=== PATIENT | female | born 1995 | race Caucasian/White ===

== ENCOUNTER 2021-09-23 10:28 | Outpatient (CLI) | payer BC, SELFPAY ==
[2021-09-25 12:47] LABS: Rapid Plasma Reagin (RPR) Non Reactive (Non Reactive)
== END 2021-09-23 10:29 | disposition home or self-care (01) ==
PROVIDERS: Visit Provider Advanced Practice Midwife
DX: Z34.93 Encounter for supervision of normal pregnancy, unspecified, third trimester (principal); Z3A.28 28 weeks gestation of pregnancy
CPT/HCPCS: 86592

== ENCOUNTER 2021-11-17 11:07 | Outpatient (CLI) | payer BC, SELFPAY ==
[2021-11-18 12:30] LABS: Strep B DNA Probe NEGATIVE (Negative)
== END 2021-11-17 11:08 | disposition home or self-care (01) ==
LOC: NFLDREF 11:07
PROVIDERS: Visit Provider Advanced Practice Midwife
DX: Z34.93 Encounter for supervision of normal pregnancy, unspecified, third trimester (principal); Z3A.36 36 weeks gestation of pregnancy
CPT/HCPCS: 87081; 87653

== ENCOUNTER 2021-11-24 09:40 | Outpatient (CLI) | payer BC, SELFPAY ==
--- NOTE | 2021-11-24 11:00 | CRLHL7_ITS ---
For Patients: As a result of the Century Cures Act, medical imaging exams and procedure reports are released immediately into your electronic medical record. You may view this report before your referring provider. If you have questions, please contact your health care provider. INDICATION: Third trimester scan, evaluate growth. BILATERAL PELVIECTASIS AT 20 WKS AND FLUID CHECK COMPARISON: 07/28/2021 TECHNIQUE: Real time christianson scale imaging of the fetus was performed. FINDINGS: Sonographic imaging demonstrates a single living intrauterine gestation. Fetus demonstrates a regular cardiac rate of 143 beats per minute. Fetus has a breech position. The placenta lies left fundal posterior, grade 3. Amniotic fluid volume appears normal and there is a single deepest vertical pocket: 5.1 cm. The estimated weight is 343gm which lies at the 86th %. On the prior OB ultrasound exam dated 07/28/2021 the estimated weight was at the 23rd%. BPD 66th percentile. HC 97th percentile. AC greater than 97th percentile. FL 5th percentile. The HC/AC ratio measures range (-). Bilateral pelviectasis again noted measuring 8 millimeters on the right and 7 millimeters on the left. IMPRESSION: Bilateral pelviectasis measuring 8 millimeters on the right and 7 millimeters on the left. Less than 7 considered normal in the 3rd trimester. Normal amniotic fluid. follow-up is recommended. Sonographic gestational age 38 weeks 1 day and sonographic due date 12/07/2021. Sonographic age 7 days ahead of the clinical age. Estimated weight 86th percentile. Abdominal circumference greater than 97th percentile. Dictated by Jose Welch MD @ 11/24/2021 11:57:59 AM (Electronically Signed)
== END 2021-11-24 09:41 | disposition home or self-care (01) ==
LOC: US 09:41
PROVIDERS: Visit Provider Advanced Practice Midwife
DX: Z34.93 Encounter for supervision of normal pregnancy, unspecified, third trimester (principal); Z3A.38 38 weeks gestation of pregnancy
CPT/HCPCS: 76816

== ENCOUNTER 2021-11-28 06:59 | Outpatient (CLI) | payer BC, SELFPAY ==
[2021-11-28 07:23] VITALS: BP 115/67; PULSE 98
[2021-11-28 07:24] VITALS: PULSE 99; O2SAT 98
[2021-11-28 07:25] VITALS: RESP 16; TEMP 36.6
[2021-11-28 08:39] LABS: SARS Antigen* negative (Negative)
[2021-11-28] MEDS: TERBUTALINE 1 MG/ML INJ 0.25 MG SUBCUT (08:49)
[2021-11-28 08:59] VITALS: PULSE 89; O2SAT 99
--- NOTE | 2021-11-28 09:01 | W.PM.GYNPROC ---
Procedure Note Time Seen by Provider: 09:01 Date Seen: 11/28/21 Procedure Details: PREOPERATIVE DIAGNOSIS: 1. Intrauterine at 37 5/7 weeks gestation. 2. Breech presentation. POSTOPERATIVE DIAGNOSIS: 1. Intrauterine at 37 5/7 weeks gestation. 2. Vertex presentation. PROCEDURE: 1. Nonstress test. 2. Limited OB ultrasound. 3. External cephalic version. SURGEON: Medardo. SERVICE CENTER TECHNICIAN: Kang. ANESTHESIA: None. COMPLICATIONS: None. FINDINGS: Nonstress test: heart rate baseline 120 beats per minute, good variability, 15 x 15 accelerations present, no decelerations, category 1. Limited OB ultrasound: Single, living, intrauterine gestation in a breech presentation with the back along the maternal left, grossly normal amniotic fluid volume. PROCEDURE NOTE: A nonstress test was performed, which was reactive and reassuring. A limited OB ultrasound was performed at the bedside to determine position. Findings noted above. Informed consent was obtained for external cephalic version. Terbutaline 0.25 mg was administered to the patient subcutaneously. External cephalic version was attempted. I applied upward pressure to the breech, Dr. Kapadia applied pressure to the vertex, and we attempted to gently coax the fetus in a forward roll in a counter-clockwise direction. This attempt was successful. heart tones were noted to be in the 110s immediately after the procedure, with good return to baseline of 120 beats per minute. The patient tolerated the procedure well. monitoring for 1 hour after the procedure was continued to be reassuring.
--- NOTE | 2021-11-28 11:50 | PC.OBNST ---
NST Note NST Note Start: 11/28/21 07:14 Freq: ONCE Status: Active Protocol: Document 11/28/21 10:00 WK (Rec: 11/28/21 11:50 WK [id number]) NST Note 4 Para (# of births) 1 EDC 12/14/21 Gestational Age In Weeks & Days 37 Weeks & 5 Days Patient Presented with Complaint(s) of Other Reactive Yes Appropriate for Gestational Age Yes RN Pravin RNC Date 11/28/21 Reactive Yes Appropriate for Gestational Age Yes RN Crissyus RN Date 11/28/21 OB NST charge Yes Complete NST Note via Write Note Yes The provider's electronic signature indicates the NST is reactive/appropriate for gestational age. *Note to provider: If an addendum is required, open the patient's chart and click on the note under the Nurse/Allied Health tab.
== END 2021-11-28 10:20 | disposition home or self-care (01) ==
LOC: OB CLI 07:00 → OB 07:01
PROVIDERS: Visit Provider Obstetrics & Gynecology
DX: Z34.93 Encounter for supervision of normal pregnancy, unspecified, third trimester (principal); Z3A.37 37 weeks gestation of pregnancy
CPT/HCPCS: 59025; 59412; 76815; 87426; 99211; 99213; J3105

== ENCOUNTER 2021-12-20 10:09 | Outpatient (CLI) | payer SELFPAY ==
--- NOTE | 2021-12-20 10:15 | CRLHL7_ITS ---
For Patients: As a result of the Century Cures Act, medical imaging exams and procedure reports are released immediately into your electronic medical record. You may view this report before your referring provider. If you have questions, please contact your health care provider. INDICATION: Post-dates COMPARISON: 11/24/2021 TECHNIQUE: Real time christianson scale imaging of the fetus was performed. Without non-stress testing. FINDINGS: Sonographic imaging demonstrates a single living intrauterine gestation. Fetus demonstrates a regular cardiac rate of 161 beats per minute. Fetus has a vertex position. The amniotic fluid volume appears normal and there is a single deepest pocket measurement of 4.3 cm. The fetus was active and demonstrated normal breathing movements. There was normal flexion and extension of the trunk and extremities. IMPRESSION: Normal biophysical profile score of 8 out of 8. Dictated by Jose Welch MD @ 12/20/2021 11:11:53 AM (Electronically Signed)
== END 2021-12-20 10:10 | disposition home or self-care (01) ==
LOC: US 10:10
PROVIDERS: Visit Provider Advanced Practice Midwife
DX: O48.0 Post-term pregnancy (principal)
CPT/HCPCS: 76819

== ENCOUNTER 2021-12-24 23:15 | Inpatient (IN) | payer SELFPAY ==
[2021-12-24 23:05] VITALS: BP 125/78; PULSE 90; RESP 16; TEMP 36.6; O2SAT 98
[2021-12-24 23:21] VITALS: BMI 33.0
--- NOTE | 2021-12-24 23:21 | P.LDBA_ITS ---
Subjective History of Present Illness Date Seen: 12/24/21 Narrative: Brittnee is a at 41 3/7 weeks gestation is being admitted to Labor and Delivery for spontaneous onset of labor. She reports contractions started around 7 pm this evening and became more regular and intense in the last hour. She is breathing well through contractions being supported by her .Her full history and physical was dictated by David Suarez CNM on 11/24/2021. Please see this for details. 1. History of Gestational Hypertension Elevated BP in labor, reports labs were normal and BP normal 2nd day. Baby aspirin not indicated but did offer. She declines. 2. Anatomy scan small fundal fibroid. EFW 23% 3. Bilateral pyelectasis. Follow up US in 3rd trimester. 11/24 US shows bilateral pelviectasis (Rt 0.8, Lt 0.7)- follow up recommended, SDP 5.1, EFW 86% 4. Breech presentation noted at 37 weeks gestation. * Successful ECV on 11/28/2021 OB - H&P: Exam Physical Exam: Vital signs: Pulse BP Pulse Ox 90 125/78 98 12/24/21 23:05 12/24/21 23:05 12/24/21 23:05 Constitutional: Constitutional: mild distress Routine HEENT Exam: Head: Present atraumatic Routine Neck Exam: Neck: Present full ROM Detailed Neck Exam: Thyroids: Comments: Supple Routine Respiratory Exam: Respiratory: Present CTA bilaterally Routine Cardiovascular Exam: Cardiovascular: RRR Detailed Labor and Delivery Exam: Patient Gravid: yes Dilation (cm): 6 Effacement (%): 90 Cervix position: mid Consistency: soft Tachysystole: No Contraction intensity: Moderate Comments: Ctx q 2-4 mins Fetus (Single): Station: -1 (Vertex by SVE, unable to determine position due to bulging BOW) Heart Rate Baseline: 135 Monitor Accelerations: Present Monitor Decelerations: None Residential Variability: Moderate (11-25) Routine Back/Spine/Pelvis Exam: Back/Spine: full ROM Routine Skin Exam: Present intact Routine Neurological Exam: Present alert, oriented X3 and normal speech Routine Psychiatric Exam: Present normal affect Comments: Stoic OB - Problem Based A/P Additional Plan (1) Spontaneous onset of labor: Status: Acute (2) Pain during labor: Status: Acute (3) Post-dates : Status: Acute Plan ASSESSMENT:? 26 at 41 3/7 weeks gestation? complicated by:?small fundal fibroid, bilateral pyelectasis, breech presentation with successful ECV Labor type: Spontaneous, Active labor? Category 1 FHR pattern.?? Labor complicated by: none? GBS negative? PLAN:? 1. Routine intrapartum cares as ordered. Continue with expectant management? 2. Monitoring per policy, intermittent? 3. Planning unmedicated . Desires water . Consent signed. Hep C negative. Candidate for analgesia of choice if desired. Tub room currently in use by another patient. Made aware that she may labor in the standard tub but would need to get out to deliver.?? 4. Patient encouraged to reposition and ambulate to promote physiologic labor and .? 5. Anticipate ?
[2021-12-25] VITALS (17 sets, daily range): BP systolic 113–134; BP diastolic 55–82; PULSE 78–102; RESP 16; TEMP 36.4–36.9; O2SAT 97–98
[2021-12-25 00:18] LABS: SARS PCR* Negative SARS-CoV-2 (Negative)
--- NOTE | 2021-12-25 03:08 | PM.OBPRCVD ---
Procedure Delivery date: 12/25/21 Procedure Done: Global Events: Other (Breech with successful ECV; Post dates >41 weeks; bilateral pyelectasis) Delivery monitor: external FHT and external uterine Route of delivery: Laceration description: Superficial (perineal abrasion, not repaired) Estimated blood loss (mL): 50 Anesthesia type: None Narrative: The patient is a 26 year-old G4 now P2022 admitted on 12/24/2021 at 41 Weeks, 3 Days gestation for spontaneous onset of labor.? Cervical exam on admission was 6 cm/90 % effaced/-1 station with membranes intact in vertex presentation.? Contractions were every 2-3 minutes.? heart rate demonstrated baseline 135 bpm with moderate variability, + accelerations, - decelerations; a category 1 tracing.? SROM occurred at 0129 with clear fluid. ? Labor Analgesia:? none ? Pitocin:? No; due to nation wide shortage, planned cytotec for AMTSL; patient declined ? Labor onset:? 12/24/2021 @ 2300 ? Complete:? 0203 assumed at time of pushing ? Pushing:? 0203 ? heart tones during second stage were reassuring throughout with intermittent decelerations that returned to baseline with good variablity. ? Patient progressed normally and progressed quickly after SROM at 0129. Patient was assumed complete with pushing at 0203. Patient only pushed with intense urge, breathing though most of her contractions even with initial onset/urge. Visable progression was made, even when not actively pushing. of a viable male at 0236 in hands and knees position on the bed. Vertex delivered OA. No nuchal cord or shoulder. After delivery most of the head, Brittnee was instructed to wait until the next contraction to push. With the next contraction the head was delivered but body did not easily follow. Upon exam, shoulder was palpated and with fingers looped under the armpit, the rest of the body was gently pulled and delivered without incident. Infant stimulated between mom's legs before being handed through and placed upon mom's chest. Mom was assisted onto her back. Cord was clamped and cut at > 5 minutes. APGARS were 8 at one minute and 9 at five minutes respectively. Mouth was bulb suctioned. Intact placenta with a 3 vessel cord delivered spontaneously at 0256. Fundus firm. Perineal abrasion was identified. Repair was offered but declined by patient. QBL 50 cc. Mother and baby stable; mother plans to breastfeed. Infant weight pending. ? Placenta delivered spontaneously and complete at 0256 with a 3 vessel cord. ? Mother and were stable after delivery. ? Lacerations:?Perineal abrasion, no repair. ? Blood loss: 50 mL. Blood loss measurement type: QBL ? Sponge and needles counts are correct. Gender: Male presentation: vertex Placental Delivery Description: Spontaneous Cord Description: 3 Vessels OB Vag Delivery Procedures Additional Procedures ECV: No Cook Catheter Insertion: No NST: No D&C: No Laceration Repair: No Tubal Ligation : No Other: No
[2021-12-26 03:07] VITALS: BP 107/70; PULSE 86; RESP 16; TEMP 36.6; O2SAT 97
[2021-12-26 07:03] LABS: Hemoglobin* 10.3 gm/dL (12.0-16.0)
--- NOTE | 2021-12-26 07:45 | PM.OBDSVD1 ---
DS: Providers Provider Time Seen by Provider: 07:46 Date Seen: 12/26/21 Date of admission: 12/24/21 23:15 Primary care physician: Not a Local Provider Admitting Clinician: Flori Russo CNM Attending Physician on discharge: Katerine Marcus CNM Date of Discharge: 12/26/21 DS: Diagnosis Discharge Diagnosis (1) state: Status: Acute (2) Lactating mother: Status: Acute Exam Const: Vital Signs, click to edit/add: Vital Signs - 24 hr 12/25/21 09:07 12/25/21 12:00 12/25/21 15:55 Temperature 97.6 F 97.6 F Pulse Rate [Pulse Oximeter] 101 H 93 102 H Respiratory Rate 16 16 Blood Pressure [Le ft Arm] 125/76 113/75 133/82 Pulse Oximetry 98 98 98 Oxygen Delivery Me thod Room Air Room Air Room Air 12/25/21 19:54 12/25/21 23:57 12/26/21 03:07 Temperature 98.0 F 98.4 F 97.8 F Pulse Rate [Pulse Oximeter] 88 85 86 Respiratory Rate 16 16 16 Blood Pressure [Le ft Arm] 126/78 121/80 107/70 Pulse Oximetry 97 97 97 Oxygen Delivery Me thod Room Air Room Air Room Air Documenting provider has reviewed patient's vital signs: yes Common normals: no apparent distress, oriented x3, healthy appearing, alert and well nourished General appearance: cooperative, well kempt and well developed Orientation/consciousness: Yes awake, Yes oriented to person, Yes oriented to place and Yes oriented to time HENMT: Common normals: normocephalic and external nose normal Head and scalp: normocephalic Nose: external nose normal Eye: General eye: normal appearance of both eyes Neck & C-Spine: Common normals: full ROM and supple General: normal visual inspection Cervical spine: cervical ROM normal Chest: Common normals: inspection of chest normal and palpation of chest normal Chest: symmetrical chest wall rise Resp: Common normals: normal respiratory effort, no retractions, no use of accessory muscles and clear to auscultation bilaterally Effort & inspection: able to speak in complete sentences Auscultation: clear to auscultation bilaterally Cardio: Common normals: regular rate and regular rhythm Rate: regular rate Rhythm: regular rhythm GI: Common normals: Normal to inspection, nondistended, normoactive bowel sounds present and soft to palpation Inspection: normal to inspection Auscultation: normoactive bowel sounds Palpation: soft and tender : Bimanual exam- vagina & uterus: other (Involuting) Other: exam Deferred d/t pt . Pt reports small amt of lochia, no concerns or pain Back & Pelvis: Common normals: thoracic and lumbar spine normal to inspection and no thoracic nor lumbar tenderness Thoracic spine/upper back: normal to inspection and thoracic ROM normal Lumbar spine/lower back: normal to inspection and lumbar ROM normal Extremity: Common normals: normal to inspection and full ROM General: normal exam except as noted Neuro: Common normals: oriented x3 Sensorium/orientation: awake, alert, oriented to person, oriented to place and oriented to time Speech: speech normal Psych: Common normals: mental status grossly normal, thought process normal and speech normal Appearance: grossly normal and well kempt Attitude: calm and engaged Activity/motor behavior: appropriate eye contact Speech: normal speech Thought process: normal thought process Thought content: normal thought content Attention/concentration: attention grossly intact Memory/cognition: memory grossly intact Insight: insight good Judgement: judgment good Skin: Common normals: no rashes or lesions noted General skin exam: no rashes or lesions noted OB - DS: Summary Hospital Course Hospital Course: Brittnee is a 26 year old G 4 now P 2 at 41 4/7 weeks gestation that was admitted to the Center on 12/24/21 for labor. She had an uncomplicated vaginal delivery. She delivered a viable male , Brendan. She is breast feeding. the patient has done well. Peripartum Data Infant delivery method: Vaginal Laceration description: None (Perineal Abrasion, not repaired) complications: none Infant Gender: Male Infant Discharge Plan: Home Status at Discharge Functional status at discharge: independent ambulation Overall status at discharge: patient is progressing back to baseline Time Spent with Patient Time attestation: Total time spent providing and/or coordinating discharge services: Time spent: Less than 30 minutes Discharge Plan Discharge Disposition: Home, Self-Care Date of Admission: 12/24/21 23:15 Attending Provider on Discharge: Katerine Marcus Primary Care Provider: Provider,Not a Local Condition: Stable Anticipated Discharge Date/Time: 12/26/21 07:54 Discharge Medications: Continued prenat.vits,fly,[id number] Tablet 1 tab PO QDAY ferrous sulfate [Ray-In-Lucy] 15 mg iron (75 mg)/mL drops 1 ml PO BID Discharge Orders: Discharge Order (Routine); Ordered 12/26/21 Ordered By: Katerine Marcus Patient Education: OB [place] [facility], OB Vaginal/Breast Feeding Additional Instructions: 2 week and 6 week Visits with [facility] Activity Level: Activity as Tolerated Discharge Diet: Regular Follow Up Appointments: [facility] [Provider Group] Forms: MyHealth Info Instructions
[2021-12-26 08:32] VITALS: BP 107/70; PULSE 79; RESP 16; TEMP 36.6; O2SAT 98
== END 2021-12-26 11:30 | disposition home or self-care (01) | DRG 807 ==
LOC: OB OUT 23:26 → OB 23:26
PROVIDERS: Admitting Provider Advanced Practice Midwife; Visit Provider Advanced Practice Midwife
DX: O48.0 Post-term pregnancy (principal); Z37.0 Single live birth; Z3A.41 41 weeks gestation of pregnancy
CPT/HCPCS: 36415; 85018; 87635